=== PATIENT | female | born 1990 | race African-American/Black ===

== ENCOUNTER 2017-02-09 14:50 | Observation (INO) | payer BC ==
[~2017-02-09] VITALS: Ht 165.1 cm; Wt 83.5 kg
[2017-02-09] MEDS ORDERED: FERR-63 PO (16:58)
[2017-02-09] MEDS ORDERED: FOLI-43 PO (16:58)
[2017-02-09] MEDS ORDERED: PREN-88 PO (16:58)
[2017-02-09] MEDS ORDERED: OCD MT (16:58)
== END 2017-02-09 17:30 | disposition home or self-care (01) ==
LOC: L&D 14:50
PROVIDERS: ADMIT Specialist; ATTEND Specialist
DX: O42.912 Preterm premature rupture of membranes, unspecified as to length of time between rupture and onset of labor, second trimester (principal); Z3A.24 24 weeks gestation of pregnancy
CPT/HCPCS: 76815; 99281; G0378

== ENCOUNTER 2017-11-24 09:29 | Emergency (ER) | payer BC, MEDICAID ==
[~2017-11-24] VITALS: Ht 167.6 cm; Wt 75.0 kg
[~2017-11-24 09:29] MED LIST: FERR-63 PO; PREN-88 PO
[2017-11-24 11:19] LABS: CLARITY URINE CLEAR (CLEAR); COLOR URINE YELLOW (YELLOW); KETONES URINE NEGATIVE (NEGATIVE); LEUKOCYTE ESTERASE URINE NEGATIVE (NEGATIVE); NITRITE URINE NEGATIVE (NEGATIVE); OCCULT BLOOD URINE NEGATIVE (NEGATIVE); PH URINE 7.5 (4.5-8.0); PROTEIN URINE NEGATIVE (NEGATIVE); SPECIFIC GRAVITY URINE 1.009 (1.005-1.030); UROBILINOGEN URINE 0.2 E.U./dL (0.2-1.0)
[2017-11-24] MEDS ORDERED: ONDANSETRON HCL 4MG/2ML VIAL IV STA (12:11)
[2017-11-24] MEDS ORDERED: SODIUM CHLORIDE 0.9% 1,000 ML IV ONE (12:11)
[2017-11-24] MEDS ORDERED: ACETAMINOPHEN 500MG TABLET PO ONE (12:15)
[2017-11-24 12:44] LABS: BASOPHILS % 0.5 % (0.0-2.0); EOSINOPHILS % 0.6 % (0.0-5.0); HEMATOCRIT. 35.9 % (36.0-48.0); HEMOGLOBIN. 11.9 g/dL (12.0-16.0); MEAN CORPUSCULAR HEMOGLOBIN 29.3 pg (28.0-32.0); MEAN CORPUSCULAR VOLUME 88.2 fL (81.0-99.0); MEAN PLATELET VOLUME 8.8 fl (7.4-10.4); MONOCYTES % 5.2 % (2.0-8.0); NEUTROPHILS % 74.7 % (40.0-76.0); PLATELET 239 x1000/uL (130-400); RED BLOOD CELL COUNT 4.07 mill/uL (4.2-5.4); RED CELL DISTRIBUTION WIDTH 13.6 % (11.6-14.6)
[2017-11-24 12:56] LABS: CHLORIDE 105 mEq/L (98-107)
[2017-11-24 15:26] VITALS: BP 122/68
== END 2017-11-24 15:27 | disposition home or self-care (01) ==
LOC: ER 09:39
DX: O26.892 Other specified pregnancy related conditions, second trimester (principal); R10.2 Pelvic and perineal pain; O99.282 Endocrine, nutritional and metabolic diseases complicating pregnancy, second trimester; E87.6 Hypokalemia; Z3A.16 16 weeks gestation of pregnancy; Z88.0 Allergy status to penicillin
CPT/HCPCS: 36415; 76805; 80053; 81003; 81025; 83690; 85025; 96361; 96374; 99285; J2405; J7030; Z7610